=== PATIENT | female | born 2005 | race African-American/Black ===

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

== ENCOUNTER 2024-12-29 09:55 | Emergency (ER) | payer OTHER ==
[~2024-12-29] VITALS: Ht 162.6 cm; Wt 61.0 kg
[~2024-12-29 09:55] MED LIST changes: +TOB03OS OP
[2024-12-29] MEDS: cefTRIAXone SOD 1,000 MG VL IM ONE (10:59)
[2024-12-29] MEDS: methylPREDNISolone SOD SUCC 125 MG/2 ML VL IM ONE (10:59)
--- NOTE | 2024-12-29 11:04 | ED.PDOC ---
Eye-HPI HPI Comments A 19 YEAR-OLD FEMALE PRESENTS TO THE ED WITH A CHIEF COMPLAINT OF SWOLLEN TONSILS WITH ASSOCIATED THROAT PAIN, SWELLING, AND DIFFICULTY SWALLOWING FOR X1 YEAR. PATIENT REPORTS WAITING FOR A TONSILLECTOMY APPT., AND HAS BEEN SENT TO THE ER FOR THE PAST YEAR FOR PAIN RELIEF. PATIENT STATES SHE HAS A TONSILLECTOMY SCHEDULED IN . PATIENT HAS NO FURTHER COMPLAINTS AT THIS TIME. PATIENT OTHERWISE DENIES FURTHER ASSOCIATED SYMPTOMS OF FEVER, CHILLS, DIZZINESS, HEADACHE, OR N/V/D. PATIENT IS ALERT, ORIENTED X 4, AND HAS STEADY GAIT. Chief Complaint: Sore Throat Time Seen by MD: 10:52 Primary Care Provider: MAHENDRA Richardson Notes: Nurses Notes, Medications, Allergies Allergies: Coded Allergies: NO KNOWN ALLERGIES (Unverified , 02/01/22) Home Meds Active Scripts Lidocaine HCl (Mouth-Throat) (Lidocaine HCl Viscous) 2 % Xi, 5 ML MT TID, #210 ML Prov:MINDA FLORES 12/29/24 Cephalexin (Cephalexin) 250 Mg/5 Ml Aviva, 10 ML PO TID, #210 ML Prov:MINDA FLORES 12/29/24 Tobramycin Sulfate (Tobrex) [address], 2 DROP OP QIDACHS, #5 ML Prov:MINDA FLORES 09/18/23 Methylprednisolone (Medrol Dosepak) 4 Mg David, 4 MG PO UD, #21 TAB UAD Prov:MINDA FLORES 10/02/22 Fluticasone-Salmeterol (Wixela Inhub 250-50 Mcg/Dose) 1 Aer Aer, 1 AER IN BID, #1 AER Prov:MINDA FLORES 10/02/22 Information Source: Patient Mode of Arrival: Ambulatory Timing: Other (YEAR ) Duration: Since onset Prehospital treatment: None Quality: Pain, Red Lids: Normal Conjunctiva: Normal Cornea: Normal Pupils: Normal EOM: Normal Slit lamp exam: Normal Mouth Location: Pharynx Mouth: Normal Nose: Normal Sinuses: Normal Oropharynx: Tonsillar hypertrophy, Red Onset: Spontaneous Associated signs and symptoms: Sore Throat, Other (THROAT PAIN AND SWELLING ) Past Medical History PAST MEDICAL HISTORY: Asthma Surgical History: Denies all surgeries SERVICES MANAGER History: Denies all SERVICES MANAGER Hx Family History Family History: Reviewed,noncontributory to illness Social History Smoker: Non-Smoker Alcohol: Denies ETOH Use Drugs: Denies Drug Use Lives In: Home Constitutional: denies: chills, diaphoresis, fatigue, fever, malaise, sweats, weakness, others EENTM: reports: throat pain, throat swelling, others (DIFFICULTY SWALLOWING/SPEAKING ); denies: blurred vision, double vision, ear bleeding, ear discharge, ear drainage, ear pain, ear ringing, eye pain, eye redness, hearing loss, mouth pain, mouth swelling, nasal discharge, nose bleeding, nose congestion, nose pain, photophobia, tearing, voice changes Respiratory: denies: cough, hemoptysis, orthopnea, SOB at rest, shortness of breath, SOB with excertion, stridor, wheezing, others Cardiovascular: denies: chest pain, dizzy spells, diaphoresis, Dyspnea on exertion, edema, irregular heart beat, left arm pain, lightheadedness, palpitations, PND, syncope, others Gastrointestinal: denies: abdomen distended, abdominal pain, blood streaked bowels, constipated, diarrhea, dysphagia, difficulty swallowing, hematemesis, melena, nausea, poor appetite, poor fluid intake, rectal bleeding, rectal pain, vomiting, others Genitourinary: denies: abnormal vagina bleeding, burning, dyspareunia, dysuria, flank pain, frequency, hematuria, incontinence, pain, , vagina discharge, urgency, others Neurological: denies: dizziness, fainting, headache, left sided numbness, left sided weakness, numbness, paresthesia, pre-existing deficit, right sided numbness, right sided weakness, seizure, speech problems, tingling, tremors, weakness, others Musculoskeletal: denies: back pain, gout, joint pain, joint swelling, muscle pain, muscle stiffness, neck pain, others Integumetry: denies: bruises, change in color, change in hair/nails, dryness, laceration, lesions, lumps, rash, wounds, others Allergic/Immunocompromised: denies: Difficulty Healing, Frequent Infections, Hives, Itching, others Hematologic/Lymphatic: denies: anemia, blood clots, easy bleeding, easy bruising, swollen glands, others Endocrine: denies: excessive hunger, excessive sweating, excessive thirst, excessive urination, flushing, intolerance to cold, intolerance to heat, unexplained weight gain, unexplained weight loss, others Psychiatric: denies: anxiety, bipolar disorder, depression, hopeless, panic disorder, schizophrenia, sleepless, suicidal, others All Other Systems: Reviewed and Negative Physical Exam General Appearance: Mild Distress, Normal HEENT: PERRL/EOMI, Pharyngeal Erythema (TONSILLAR SWELLING, NO EXUDATES. ), TMs Normal Neck: Full Range of Motion, Non-Tender, Normal, Normal Inspection Respiratory: Chest Non-Tender, Lungs Clear, No Accessory Muscle Use, No Respiratory Distress, Normal Breath Sounds Cardiovascular: No Edema, No JVD, No Murmur, No Gallop, Normal Peripheral Pulses, Regular Rate/Rhythm Breast Exam: Deferred Gastrointestinal: No Organomegaly, Non Tender, No Pulsatile Mass, Normal Bowel Sounds, Soft Genitalia: Deferred Pelvic: Deferred Rectal: Deferred Extremities: No calf tenderness, Normal capillary refill, Normal inspection, Normal range of motion, Non-tender, No pedal edema Musculoskeletal : Apperance: Normal Neurologic: Alert, [employer] II-XII nml as Tested, No Motor Deficits, Normal Affect, Normal Mood, No Sensory Deficits Cerebellar Function: Normal Reflexes: Normal Skin: Dry, Normal Color, Warm Peripheral Pulses: 2+ carotid (R), 2+ carotid (L) Lymphatic: No Adenopathy Was a procedure done? Was a procedure done?: No EENT DIFF Eye: Bacterial, Viral Mouth: Other (TONSILITIS ) Sore Throat: Pharyngitis, Streptococcal, Viral Pharyngitis, Other (ERYTHEMA TONSILLITIS ) X-Ray, Labs, Meds, VS Vital Signs Date Time Temp Pulse Resp B/P (MAP) Pulse Ox O2 Delivery O2 Flow Rate FiO2 12/29/24 10:01 98.3 117 16 107/65 98 98.3 Current Medications Medications (Trade) Dose Ordered Sig/Bella Route Start Time Stop Time Status Last Admin Ceftriaxone Sodium (Rocephin) 1,000 mg ONCE ONCE IM 12/29/24 10:45 12/29/24 10:46 DC 12/29/24 10:59 Methylprednisolone Sodium Succinate (Solu Medrol) 125 mg ONCE ONCE IM 12/29/24 10:45 12/29/24 10:46 DC 12/29/24 10:59 X-Ray, Labs, Meds, VS Comment EXTERNAL MEDICAL RECORDS REVIEWED: [NONE] INDEPENDENT HISTORIANS: [NONE] SOCIAL DETERMINANTS OF HEALTH: [NONE] LABS ORDERED: NONE REVIEWED AND INTERPRETED RESULTS: NONE IMAGING ORDERED: NONE TREATMENTS ORDERED: ROCEPHIN 1GM IM AND SOLUMEDROL 125MG IM PROCEDURES PERFORMED: NONE CRITICAL CARE TIME: NONE I HAVE DISCUSSED THE PATIENT WITH THE ATTENDING PHYSICIAN, DR. FARAH, AND HE AGREES WITH THE PATIENT'S PLAN OF CARE AND DISPOSITION. BASED ON HISTORY OF PRESENT ILLNESS, AND PHYSICAL EXAM, PATIENT WILL BE DISCHARGED HOME. DISCUSSED PLAN FOR DISCHARGE HOME WITH RX CEPHALEXIN AND 2% LIDOCAINE. MEDICATION WARNINGS GIVEN. SHARED DECISION MAKING: DISCUSSED WITH PATIENT THAT THEIR WORKUP WAS NORMAL. PATIENT INSTRUCTED TO FOLLOW UP WITH PRIMARY CARE PROVIDER IN 1-2 DAYS FOR RE- EVALUATION OF SYMPTOMS. PATIENT VERBALIZES UNDERSTANDING TO RETURN TO ED FOR NEW OR WORSENING SYMPTOMS OR IF FOLLOW UP WITH PCP CANNOT BE OBTAINED. PATIENT FEELS COMFORTABLE GOING HOME AT THIS TIME. ALL QUESTIONS ADDRESSED AT TIME OF DISCHARGE. Time of 1ST Reevaluation: 11:10 Reevaluation 1ST: Improved Patient Education/Counseling: Diagnosis, Treatment, Need For Follow Up Family Education/Counseling: Diagnosis, Treatment, No Family Present Medical Screening: No EMC Exist At This Time SEPSIS Sepsis Screen Date sepsis recognized/suspect: Dec 29, 2024 Time Sepsis recognized/suspect: 1003 Recent Procedure: No (T) On Antibiotic Therapy: No Respiratory Rate >20: No Heart Rate >90: Yes (117) Temp<36 C (96.8 F) or >38.3 C: No SBP <90 or MAP <65 mmHG: No New Acute Mental Status Change: No Is the patient on CPAP, BIPAP,: No Vital Signs Date Time Temp Pulse Resp B/P (MAP) Pulse Ox O2 Delivery O2 Flow Rate FiO2 12/29/24 10:01 98.3 117 16 107/65 98 98.3 Medications Medications Dose Ordered Sig/Bella Route Start Time Stop Time Status Last Admin Dose Admin Ceftriaxone Sodium 1,000 mg ONCE ONCE IM 12/29/24 10:45 12/29/24 10:46 DC 12/29/24 10:59 Methylprednisolone Sodium Succinate 125 mg ONCE ONCE IM 12/29/24 10:45 12/29/24 10:46 DC 12/29/24 10:59 Departure 1 Departure Time of Disposition: 11:10 Impression: Primary Impression: Acute erythematous tonsillitis Disposition: HOME / SELF CARE / HOMELESS Condition: Stable Additional Instructions: FOLLOW-UP WITH PCP IN 1 TO 2 DAYS. TAKE MEDICATIONS PRESCRIBED. RETURN TO ED FOR ANY NEW OR WORSENING SYMPTOMS. e-Prescriptions Lidocaine HCl (Mouth-Throat) (Lidocaine HCl Viscous) 2 % Xi 5 ML MT TID, #210 ML Prov: MINDA FLORES 12/29/24 Cephalexin (Cephalexin) 250 Mg/5 Ml Aviva 10 ML PO TID, #210 ML Prov: MINDA FLORES 12/29/24 Discharged With: Self Critical Care Note Critical Care Time?: No Stability Stability form required: No Heart Score Heart Score: Heart Score Response (Comments) Value History N/A 0 EKG N/A 0 Age N/A 0 Risk Factors N/A 0 Troponin N/A 0 Total 0 I personally scribed for MINDA FLORES ([email or web address]) on 12/29/24 at 11:04. Electronically submitted by Kim Hunter ([employer]). I personally scribed for MINDA FLORES ([email or web address]) on 12/29/24 at 11:06. Electronically submitted by Kim Hunter ([employer]). MINDA FLORES Dec 29, 2024 11:04
[2024-12-29] MEDS ORDERED: LIDO2SOL26 MT (11:06)
[2024-12-29] MEDS ORDERED: CEPH250S PO (11:06)
[2024-12-29 11:22] VITALS: BP 111/62; PULSE 99; RESP 16; TEMP 98.8; O2SAT 99
== END 2024-12-29 11:28 | disposition home or self-care (01) ==
LOC: ER 09:55
DX: J03.90 Acute tonsillitis, unspecified (principal); L53.8 Other specified erythematous conditions; J45.909 Unspecified asthma, uncomplicated; Z79.899 Other long term (current) drug therapy
CPT/HCPCS: 96372; 99284; J0696; J2919